=== PATIENT | male | born 1945 | race Caucasian/White ===

== ENCOUNTER 2022-02-08 13:34 | Emergency (ER) | payer BC, MEDICARE ==
[~2022-02-08] VITALS: Ht 180.3 cm; Wt 111.4 kg
[2022-02-08] MEDS ORDERED: ASPI1CHW3 PO (13:50)
[2022-02-08] MEDS ORDERED: PANT40TA29 PO (13:50)
[2022-02-08] MEDS ORDERED: ASPI81TA26 PO (13:50)
[2022-02-08] MEDS ORDERED: PLAV1TAB2 PO (13:50)
[2022-02-08] MEDS ORDERED: ROSU10TA6 PO (13:50)
[2022-02-08] MEDS ORDERED: RANO500T7 PO (13:50)
[2022-02-08] MEDS ORDERED: GLYB-150 PO (13:50)
[2022-02-08] MEDS ORDERED: METO1TAB7 PO (13:50)
[2022-02-08] MEDS ORDERED: FLOM0.4C39 PO (13:50)
[2022-02-08] MEDS ORDERED: HUMA50IN3 SC (13:50)
[2022-02-08] MEDS ORDERED: ASPIRIN 81 MG CHEW TABLET PO ONE (14:10)
[2022-02-08 14:45] LABS: BASO % 0.4 % (0.0-1.0); EOS # 0.2 10^3/uL (0.0-0.5); EOS % 1.8 % (0.0-3.0); HEMATOCRIT 31.6 % (42.0-52.0); HEMOGLOBIN 10.4 g/dl (13.5-17.5); LYMPH # 0.6 10^3/uL (1.5-5.0); LYMPH % 5.9 % (24.0-44.0); MEAN CORPUSCULAR HEMOGLOBIN 30.7 pg (27.0-33.0); MEAN CORPUSCULAR HGB CONC 32.9 g/dl (32.0-36.5); MEAN CORPUSCULAR VOLUME 93.2 fl (80.0-96.0); MONO # 1.2 10^3/uL (0.0-0.8); MONO % 12.3 % (2.0-8.0); NEUTROPHILS # 7.9 10^3/uL (1.5-8.5); NEUTROPHILS % 78.7 % (36.0-66.0); PLATELET COUNT, AUTOMATED 170 10^3/uL (150-450); RED BLOOD COUNT 3.39 10^6/uL (4.30-6.10)
[2022-02-08 15:02] LABS: RSV AMPLIFICATION NEGATIVE (NEGATIVE)
[2022-02-08 15:03] LABS: INR 1.05; PROTHROMBIN TIME 14.2 SECONDS (12.7-14.5)
[2022-02-08 15:04] LABS: PARTIAL THROMBOPLASTIN TIME 31.6 SECONDS (25.9-37.0)
[2022-02-08 15:20] LABS: CK-MB VALUE MASS 3.6 NG/ML (<3.6); MB/CK RELATIVE INDEX 1.38 (< OR =4)
[2022-02-08 15:23] LABS: ALBUMIN 3.3 GM/DL (3.2-5.2); BILIRUBIN,DIRECT 0.3 MG/DL (0.0-0.2); BILIRUBIN,TOTAL 0.6 MG/DL (0.2-1.0); CALCIUM LEVEL 8.2 MG/DL (8.8-10.2); CREATININE FOR GFR 2.29 MG/DL (0.70-1.30); GLOMERULAR FILTRATION RATE 29.7 (>42); POTASSIUM SERUM 4.7 MEQ/L (3.5-5.1); THYROID STIMULATING HORMONE 2.29 uIU/ML (0.358-3.740); THYROXINE (T4) 5.9 UG/DL (4.5-12.0); TOTAL PROTEIN 7.2 GM/DL (6.4-8.2)
[2022-02-08] MEDS ORDERED: HEPARIN SOD (PORCINE) 5000UNITS/ML 1ML VIAL/SYRINGE IV ONE (15:50)
[2022-02-08] MEDS ORDERED: HEPARIN DRIP 25,000 UNITS in IV 1 EA IV SCH (15:50)
[2022-02-08 16:21] LABS: CK-MB VALUE MASS 3.3 NG/ML (<3.6); MB/CK RELATIVE INDEX 1.37 (< OR =4)
[2022-02-08 18:23] LABS: CK-MB VALUE MASS 3.3 NG/ML (<3.6); MB/CK RELATIVE INDEX 1.35 (< OR =4)
[2022-02-08 21:08] VITALS: BP 171/84
== END 2022-02-08 21:13 | disposition short-term general hospital (02) ==
LOC: M ED 13:34
DX: I21.4 Non-ST elevation (NSTEMI) myocardial infarction (principal); I20.0 Unstable angina; I45.10 Unspecified right bundle-branch block; E11.9 Type 2 diabetes mellitus without complications; I10 Essential (primary) hypertension; E78.5 Hyperlipidemia, unspecified; G47.33 Obstructive sleep apnea (adult) (pediatric)
CPT/HCPCS: 71045; 80048; 80076; 82550; 82553; 83880; 84436; 84443; 84484; 85025; 85610; 85730; 87631; 93005; 93041; 94760; 96374; 99285; J1644